=== PATIENT | female | born 1995 | race Caucasian/White ===

== ENCOUNTER 2017-11-04 10:26 | Emergency (ER) | payer OTHER ==
[~2017-11-04] VITALS: Ht 162.6 cm; Wt 50.3 kg
== END 2017-11-04 14:42 | disposition home or self-care (01) ==
LOC: ER 10:26
DX: N39.0 Urinary tract infection, site not specified (principal)

== ENCOUNTER 2020-03-17 17:33 | Emergency (ER) | payer OTHER ==
[~2020-03-17] VITALS: Ht 162.6 cm; Wt 52.2 kg
== END 2020-03-17 22:37 | disposition home or self-care (01) ==
LOC: ER 17:33
DX: R10.2 Pelvic and perineal pain (principal)